=== PATIENT | female | born 1960 | race Two or more races ===

== ENCOUNTER 2020-05-28 05:29 | Emergency (ER) | payer OTHER ==
[~2020-05-28] VITALS: Ht 170.2 cm; Wt 110.0 kg
[2020-05-28 06:28] LABS: HEMATOCRIT 30.1 % (36.0-48.0); HEMOGLOBIN 10.3 g/dL (12.0-16.0); MEAN CORPUSCULAR HEMOGLOBIN 27.8 pg (28.0-32.0); MEAN CORPUSCULAR VOLUME 81.3 fL (81.0-99.0); PLATELET 419 x1000/uL (130-400); RED CELL DISTRIBUTION WIDTH 14.8 % (11.6-14.6)
[2020-05-28 06:38] LABS: CHLORIDE 107 mEq/L (98-107)
[2020-05-28] MEDS ORDERED: LIDOCAINE HCL/EPINEPHRINE 1%-EPI 1:100,000 30 ML VIAL INFIL ONE (06:45)
[2020-05-28] MEDS ORDERED: LIDOCAINE HCL/EPINEPHRINE 1%-EPI 1:100,000 20 ML VIAL INFIL ONE (07:03)
[2020-05-28 07:24] VITALS: BP 143/67
== END 2020-05-28 07:48 | disposition home or self-care (01) ==
LOC: ER 05:29
DX: T81.30XA Disruption of wound, unspecified, initial encounter (principal); X58.XXXA Exposure to other specified factors, initial encounter; I10 Essential (primary) hypertension
CPT/HCPCS: 12015; 36415; 80053; 85027; 86850; 86900; 99283